=== PATIENT | female | born 1975 | race Caucasian/White ===

== ENCOUNTER 2019-08-06 09:25 | Day surgery (SDC) | payer BC ==
[2019-08-06] MEDS ORDERED: fentaNYL 100 MCG/2 ML SDV ONE (09:52)
[2019-08-06] MEDS ORDERED: Midazolam 1 MG/ML 2 ML SDV ONE (09:52)
[2019-08-06] MEDS ORDERED: Propofol 200 MG/20 ML SDV ONE (09:52)
[2019-08-06] MEDS ORDERED: Dextrose 5%-Lactated Ringers 1,000 ML IV SCH (10:30)
--- NOTE | 2019-08-16 13:24 | OR ---
DATE OF PROCEDURE: 08/06/2019 SURGEON: Rosendo Hernnadez MD PREOPERATIVE DIAGNOSIS: Indications for screening colonoscopy. POSTOPERATIVE DIAGNOSIS: Normal colonoscopic examination. OPERATIVE PROCEDURE: Flexible colonoscopy. ANESTHESIA: IV sedation. INDICATION FOR PROCEDURE: This is a 44-year-old female presenting for screening colonoscopy. She does have a family history of colon carcinoma in her father and the plan is to proceed with a colonoscopy with biopsies and polypectomy as indicated. Potential risks of the procedure including bleeding and perforation were discussed and the patient wishes to proceed. DETAILS OF PROCEDURE: The patient was taken to the operating room and placed in a left lateral decubitus position. IV sedation was administered, after which the initial digital rectal exam was performed which was unremarkable. Colonoscope was then passed into the rectum with retroflexion revealing uncomplicated hemorrhoidal columns. The scope was eventually passed to the cecum. The prep was fairly good with only a small amount of liquid stool present. To that level, no abnormalities were noted, specifically there were no diverticular or areas of colitis. No polyps or other signs of neoplasia. The scope was then withdrawn. The above findings were confirmed and the procedure concluded. The patient was taken to the recovery room in satisfactory condition. There were no complications. Given the family history of colon carcinoma, the patient should be scheduled for a followup colonoscopy in 5 years. Rosendo Hernandez MD /[id number]
== END 2019-08-06 12:40 | disposition home or self-care (01) ==
LOC: JP.SDS 09:25
PROVIDERS: ATTEND Surgery
DX: Z12.11 Encounter for screening for malignant neoplasm of colon (principal); Z80.0 Family history of malignant neoplasm of digestive organs
CPT/HCPCS: 45378; J2250; J2704; J3010; J7121

== ENCOUNTER 2025-03-18 06:41 | Day surgery (SDC) | payer BC ==
[2025-03-18] MEDS: Lactated Ringers 1,000 ML IV SCH (07:17)
[2025-03-18] MEDS ORDERED: fentaNYL 100 MCG/2 ML SDV ONE (07:29)
[2025-03-18] MEDS ORDERED: Midazolam 1 MG/ML 2 ML SDV ONE (07:29)
[2025-03-18] MEDS ORDERED: Propofol 200 MG/20 ML SDV ONE (07:29)
== END 2025-03-18 09:45 | disposition home or self-care (01) ==
LOC: JP.SDS 06:41
PROVIDERS: ATTEND Family Medicine
DX: Z12.11 Encounter for screening for malignant neoplasm of colon (principal); K62.1 Rectal polyp; Z83.719 Family history of colon polyps, unspecified
CPT/HCPCS: 00811; 45380; 88305; J2250; J2704; J3010; J7120